=== PATIENT | female | born 1970 | race Caucasian/White ===

== ENCOUNTER 2019-06-10 10:07 | Emergency (ER) | payer OTHER, SELFPAY ==
--- NOTE | 2019-06-10 10:11 | DI.RAD.S_ITS ---
PROCEDURE: XR ANKLE RT MIN 3V INDICATIONS: injury TECHNIQUE: 3 views of the ankle were acquired. COMPARISON: None. FINDINGS: Bones: No fractures or dislocations but there is what appears to be a small accessory ossicle adjacent to the inferior tip of the medial malleolus. Ankle mortise is normally aligned. No suspicious bony lesions. Soft tissues: No tibiotalar joint effusion. Achilles tendon appears normal. Mild soft tissue swelling over the medial aspect of the distal metadiaphyseal junction of the tibia is present seen on one view only. IMPRESSION: No fracture found, no traumatic subluxation seen. Ligamentous injury could be present as cause of the soft tissue swelling noted above. Accessory ossicle is noted. Dictated by: Wil Perez M.D. on 06/10/2019 at 11:51 Approved by: Wil Perez M.D. on 06/10/2019 at 11:53
[2019-06-10 10:58] VITALS: BMI 32.1
[2019-06-10 11:01] VITALS: BP 155/78; PULSE 70; RESP 20; TEMP 36.9; O2SAT 97; BMI 32.1
--- NOTE | 2019-06-10 12:00 | ED.LOWEXIN ---
HPI - Extremity Injury (Lower) <Arnav JaimesLIZET ariasP - Last Filed: 06/10/19 23:15> General Chief Complaint: Extremity Injury, Lower Stated Complaint: smashed foot on platform Time Seen by Provider: 06/10/19 11:23 Source: patient Mode of arrival: other (scooter) Limitations: no limitations History of Present Illness HPI Narrative: This is a 49-year-old female, nonsmoker, presents with her friend with chief complain of right medial ankle pain, bruise and swelling. She reports she was at [employer] [facility] on Monday. She hit right food on a ramp when she is trying to stretch her right leg from having cramps. She reports unable to bear weight or ambulate on affected leg due to pain. She has been using ice, elevated affected leg and used Aaron wrap for last 36 hours. She reports her pain is at 5/10 and took Tylenol last night at 2100. She reports had a history of right foot fracture. Related Data Home Medications Medication Instructions Recorded Confirmed methylphenidate HCl 54 mg PO DAILY 06/10/19 06/10/19 Allergies Allergy/AdvReac Type Severity Reaction Status Date / Time No Known Drug Allergies Allergy Verified 06/10/19 10:12 Review of Systems <Arnav Mendieta [facility] Last Filed: 06/10/19 23:15> Review of Systems General: Denies fever, chills, fatigue, malaise, sweats. HEENT: Denies sinus pain, ear pain, sore throat, difficulty swallowing, dizziness. Respiratory: Denies dyspnea, cough, wheezing, hemoptysis, sputum. Cardiovascular: Denies chest pain, palpitations, orthopnea, edema. Gastrointestinal: Denies nausea, vomiting, abdominal pain, diarrhea, constipation, melena. : Denies dysuria, frequency, incontinence, hematuria, urinary retention. Musculoskeletal: See HPI Skin: Denies rash, skin lesions, or other. Neurologic: Denies weakness, headache, numbness, change in speech, confusion, seizures, incoordination. Psychiatric: No concerning psychosocial issues. 12-point review of systems is negative except for those stated above. Exam <Arnav Jaimeshugo [facility] Last Filed: 06/10/19 23:15> Narrative Exam Narrative: GEN: Alert, oriented x 3, well appearing and nourished, and in no acute distress. Head: Normal cephalic, atraumatic. No scalp or temporal tenderness, palpable mass or rash. EYES: Pupils are equal, round, and reactive to light and accommodation. Extraocular muscles are intact bilaterally. There is no subconjunctival hemorrhage, exudate and sclera non-icteric. ENT: Nose without bleeding, purulent discharge. Mucous membrane moist, no mucosal lesion. Throat without erythema, tonsillar hypertrophy or exudate. Uvula in midline, airway patent. Neck: Trachea in midline. No JVD, non-tender without lymphadenopathy. No masses or thyroid megaly. Supple, non-tender and no meningeal signs. CARDIAC: Normal regular rate and rhythm without murmurs, gallops, or rubs. No chest wall tenderness. No peripheral edema, cyanosis or pallor. Capillary refill is less than 2 seconds. No carotid bruits. RESPIRATORY: Lungs are cleat to auscultate bilaterally. No cough, wheezes, rales, or rhonchi. No stridor, respiratory distress, increase work of breathing, or accessary muscle used. ABD: Abdomen soft, nontender and non-distended. No guarding or rebound tenderness to palpate. Bowel sounds are normal in all 4 quadrants. There is no palpable masses or organomegaly. SKIN: Ecchymosis on R medial ankle. Warm, dry, normal color for patient. BACK: Nontender without deformity or crepitance. No flank tenderness. NEUROLOGICAL: Alert and oriented to place, time and person. Sensation and motor function intact bilaterally. No facial droops, dysphasia. PSYCHIATRIC: Good judgement and reason, without hallucinations, abnormal affect or abnormal behaviors during the examination. Initial Vital Signs Initial Vital Signs: Vital Signs Temperature 98.5 F 06/10/19 11:01 Pulse Rate 70 06/10/19 11:01 Respiratory Rate 20 06/10/19 11:01 Blood Pressure 155/78 H 06/10/19 11:01 Pulse Oximetry 97 06/10/19 11:01 Extrem Right lower extremity: normal capillary refill, hip/thigh Details: normal to inspection and normal ROM; no tenderness and no swelling, knee Details: normal ROM; no tenderness and no swelling and ankle Details: tenderness, swelling, abnormal ROM Details: pain with passive ROM and ecchymosis Left lower extremity: normal to inspection, full ROM and normal capillary refill; no edema <Halie Lemon DO - Last Filed: 06/12/19 18:00> Initial Vital Signs Initial Vital Signs: Vital Signs Temperature 98.5 F 06/10/19 11:01 Pulse Rate 70 06/10/19 11:01 Respiratory Rate 20 06/10/19 11:01 Blood Pressure 155/78 H 06/10/19 11:01 Pulse Oximetry 97 06/10/19 11:01 Procedures <ROSALINE Asencio - Last Filed: 06/10/19 23:15> Orthopedic Splinting/Casting Injury #1: Side: right Lower Extremity Injury Location: ankle Lower Extremity Immobilizer: AirCast Post splinting neuro exam: intact Post splinting vascular exam: intact Placed by: Nursing Additional Comments: The patient has her own scooter type walker (borrowed from a neighbor). Course <ROSALINE Asencio - Last Filed: 06/10/19 23:15> Orders Ordered: ED Orders 06/10/19 10:11 XR ankle RT min 3V Stat Vital Signs - 8 hr 06/10/19 11:01 Temperature 98.5 F Pulse Rate 70 Respiratory Rate 20 Blood Pressure 155/78 H Pulse Oximetry 97 <Halie Lemon DO - Last Filed: 06/12/19 18:00> Orders Ordered: ED Orders 06/10/19 10:11 XR ankle RT min 3V Stat Vital Signs - 8 hr 06/10/19 11:01 Temperature 98.5 F Pulse Rate 70 Respiratory Rate 20 Blood Pressure 155/78 H Pulse Oximetry 97 MDM - Extremity Injury (Lower) <ROSALINE Asencio Last Filed: 06/10/19 23:15> Differential Diagnosis Likely ankle sprain and strain and ankle fracture Medical Records Attestation: I reviewed the patient's medical records. Imaging Data XR-R ankle: Radiologist's impression: [address] [address] XRay Report Signed Patient: Lashay Almodovar#: [id number] : 1970Acct:[id number] Age/Sex: 49 / FDate of Service: 06/10/19 Loc: ED Accession Number: [id number] Procedure: XR ankle RT min 3V Ordering Provider: Halie Lemon D.O. PROCEDURE: XR ANKLE RT MIN 3V INDICATIONS: injury TECHNIQUE: 3 views of the ankle were acquired. COMPARISON: None. FINDINGS: Bones: No fractures or dislocations but there is what appears to be a small accessory ossicle adjacent to the inferior tip of the medial malleolus. Ankle mortise is normally aligned. No suspicious bony lesions. Soft tissues: No tibiotalar joint effusion. Achilles tendon appears normal. Mild soft tissue swelling over the medial aspect of the distal metadiaphyseal junction of the tibia is present seen on one view only. IMPRESSION: No fracture found, no traumatic subluxation seen. Ligamentous injury could be present as cause of the soft tissue swelling noted above. Accessory ossicle is noted. Dictated by: Wil Perez M.D. on 06/10/2019 at 11:51 Approved by: Wil Perez M.D. on 06/10/2019 at 11:53 [facility] Narrative Medical decision making narrative: This is a 49-year-old female presents ED with right ankle pain, swelling, bruise. She sustained an injury on Monday when she was coming down zip line and hit her right food on a ramp while she was trying to stretch her legs from cramps. She reports she was unable to bear weight or ambulate due to pain. Right foot pedal pulse is intact, normal sensation, and she was able to wiggle her toes. She reports increased pain on her right ankle with light touch and passive range of motion of flexion and extension of right foot. She reports had of right foot fracture in the past. Right ankle three view x-rays was obtained and shows no fracture, subluxation, dislocation, tibial tarlar joint effusion. Patient provided with air cast on right ankle. Patient declined crutches and choose to use her neighbors scooter type walker. Return precautions were discussed. The patient was advised to follow with her primary care physician at [facility] in 2-3 days for re-evaluation. She was advised to use RICE therapy or pain. All questions were answered and patient agrees with treatment plan. Discharge Plan Departure Patient Disposition: Home Clinical Impression: Ankle sprain and strain Discharge Date/Time: 06/10/19 12:20 Interventions: ED Discharge Assessment Last Done: 06/10/19 12:19 Instructions: DI for Ankle Sprain Activity Restrictions/Additional Instructions: You have been diagnosed with [ankle sprain and strain. Per xray test, you do not have fractures or dislocations, tibiotarlar joint effusion on your ankle. There was mild soft tissue swelling over the medial aspect of the distal metadiaphyseal junction of the tibia. However, there could be ligamentous injury present. Please use the ankle splint for pain and comfort. You could continue to use a scooter for ambulation aid if you prefer this]. What to do: *Take your medications as directed. Please take [id number] Tylenol and or Motrin as needed for discomfort. Use ice pack for next 12 hours in addition. *Follow up with your primary care provider in 2-3 days, call for an appointment. Let them know you were seen in the ED and that we asked you to be seen in follow up. *Return to ED if you have any new, worsening, or concerning symptoms, such as [severe pain, significant swelling, tingling numbness to toes, weakness to her foot, chest pain, difficulty breathing, any other acute concerns]. Prescriptions: No Action methylphenidate HCl 54 mg tablet extended release 24hr 54 mg PO DAILY RF: 0 Referrals: [facility] [Outside] <Halie Lemon DO - Last Filed: 06/12/19 18:00> Cosign ED Attending Cosignature Attestation: I was immediately available in the department for consultation. This documentation has been reviewed and I agree with assessment and plan. Supervised by Halie Lemon DO
--- NOTE | 2019-06-10 12:06 | ED_ITS ---
HPI - Extremity Injury (Lower) <Arnav JaimesLIZET ariasP - Last Filed: 06/10/19 23:15> General Chief Complaint: Extremity Injury, Lower Stated Complaint: smashed foot on platform Time Seen by Provider: 06/10/19 11:23 Source: patient Mode of arrival: other (scooter) Limitations: no limitations History of Present Illness HPI Narrative: This is a 49-year-old female, nonsmoker, presents with her friend with chief complain of right medial ankle pain, bruise and swelling. She reports she was at [employer] [facility] on Monday. She hit right food on a ramp when she is trying to stretch her right leg from having cramps. She reports unable to bear weight or ambulate on affected leg due to pain. She has been using ice, elevated affected leg and used Aaron wrap for last 36 hours. She reports her pain is at 5/10 and took Tylenol last night at 2100. She reports had a history of right foot fracture. Related Data Home Medications Medication Instructions Recorded Confirmed methylphenidate HCl 54 mg PO DAILY 06/10/19 06/10/19 Allergies Allergy/AdvReac Type Severity Reaction Status Date / Time No Known Drug Allergies Allergy Verified 06/10/19 10:12 Review of Systems <Arnav Mendieta [facility] Last Filed: 06/10/19 23:15> Review of Systems General: Denies fever, chills, fatigue, malaise, sweats. HEENT: Denies sinus pain, ear pain, sore throat, difficulty swallowing, dizziness. Respiratory: Denies dyspnea, cough, wheezing, hemoptysis, sputum. Cardiovascular: Denies chest pain, palpitations, orthopnea, edema. Gastrointestinal: Denies nausea, vomiting, abdominal pain, diarrhea, constipati on, melena. : Denies dysuria, frequency, incontinence, hematuria, urinary retention. Musculoskeletal: See HPI Skin: Denies rash, skin lesions, or other. Neurologic: Denies weakness, headache, numbness, change in speech, confusion, seizures, incoordination. Psychiatric: No concerning psychosocial issues. 12-point review of systems is negative except for those stated above. Exam <Arnav Jaimeshugo [facility] Last Filed: 06/10/19 23:15> Narrative Exam Narrative: GEN: Alert, oriented x 3, well appearing and nourished, and in no acute distress. Head: Normal cephalic, atraumatic. No scalp or temporal tenderness, palpable mass or rash. EYES: Pupils are equal, round, and reactive to light and accommodation. Extraocular muscles are intact bilaterally. There is no subconjunctival hemorrhage, exudate and sclera non-icteric. ENT: Nose without bleeding, purulent discharge. Mucous membrane moist, no mucosal lesion. Throat without erythema, tonsillar hypertrophy or exudate. Uvula in midline, airway patent. Neck: Trachea in midline. No JVD, non-tender without lymphadenopathy. No masses or thyroid megaly. Supple, non-tender and no meningeal signs. CARDIAC: Normal regular rate and rhythm without murmurs, gallops, or rubs. No chest wall tenderness. No peripheral edema, cyanosis or pallor. Capillary refill is less than 2 seconds. No carotid bruits. RESPIRATORY: Lungs are cleat to auscultate bilaterally. No cough, wheezes, rales, or rhonchi. No stridor, respiratory distress, increase work of breathing, or accessary muscle used. ABD: Abdomen soft, nontender and non-distended. No guarding or rebound tenderness to palpate. Bowel sounds are normal in all 4 quadrants. There is no palpable masses or organomegaly. SKIN: Ecchymosis on R medial ankle. Warm, dry, normal color for patient. BACK: Nontender without deformity or crepitance. No flank tenderness. NEUROLOGICAL: Alert and oriented to place, time and person. Sensation and motor function intact bilaterally. No facial droops, dysphasia. PSYCHIATRIC: Good judgement and reason, without hallucinations, abnormal affect or abnormal behaviors during the examination. Initial Vital Signs Initial Vital Signs: Vital Signs Temperature 98.5 F 06/10/19 11:01 Pulse Rate 70 06/10/19 11:01 Respiratory Rate 20 06/10/19 11:01 Blood Pressure 155/78 H 06/10/19 11:01 Pulse Oximetry 97 06/10/19 11:01 Extrem Right lower extremity: normal capillary refill, hip/thigh Details: normal to inspection and normal ROM; no tenderness and no swelling, knee Details: normal ROM; no tenderness and no swelling and ankle Details: tenderness, swelling, abnormal ROM Details: pain with passive ROM and ecchymosis Left lower extremity: normal to inspection, full ROM and normal capillary refill; no edema <Halie Lemon DO - Last Filed: 06/12/19 18:00> Initial Vital Signs Initial Vital Signs: Vital Signs Temperature 98.5 F 06/10/19 11:01 Pulse Rate 70 06/10/19 11:01 Respiratory Rate 20 06/10/19 11:01 Blood Pressure 155/78 H 06/10/19 11:01 Pulse Oximetry 97 06/10/19 11:01 Procedures <ROSALINE Asencio - Last Filed: 06/10/19 23:15> Orthopedic Splinting/Casting Injury #1: Side: right Lower Extremity Injury Location: ankle Lower Extremity Immobilizer: AirCast Post splinting neuro exam: intact Post splinting vascular exam: intact Placed by: Nursing Additional Comments: The patient has her own scooter type walker (borrowed from a neighbor). Course <ROSALINE Asencio - Last Filed: 06/10/19 23:15> Orders Ordered: ED Orders 06/10/19 10:11 XR ankle RT min 3V Stat Vital Signs - 8 hr 06/10/19 11:01 Temperature 98.5 F Pulse Rate 70 Respiratory Rate 20 Blood Pressure 155/78 H Pulse Oximetry 97 <Halie Lemon DO - Last Filed: 06/12/19 18:00> Orders Ordered: ED Orders 06/10/19 10:11 XR ankle RT min 3V Stat Vital Signs - 8 hr 06/10/19 11:01 Temperature 98.5 F Pulse Rate 70 Respiratory Rate 20 Blood Pressure 155/78 H Pulse Oximetry 97 MDM - Extremity Injury (Lower) <ROSALINE Asencio Last Filed: 06/10/19 23:15> Differential Diagnosis Likely ankle sprain and strain and ankle fracture Medical Records Attestation: I reviewed the patient's medical records. Imaging Data XR-R ankle: Radiologist's impression: [address] [address] XRay Report Signed Patient: Lashay Almodovar#: [id number] : 1970Acct:[id number] Age/Sex: 49 / FDate of Service: 06/10/19 Loc: ED Accession Number: [id number] Procedure: XR ankle RT min 3V Ordering Provider: Halie Lemon D.O. PROCEDURE: XR ANKLE RT MIN 3V INDICATIONS: injury TECHNIQUE: 3 views of the ankle were acquired. COMPARISON: None. FINDINGS: Bones: No fractures or dislocations but there is what appears to be a small accessory ossicle adjacent to the inferior tip of the medial malleolus. Ankle mortise is normally aligned. No suspicious bony lesions. Soft tissues: No tibiotalar joint effusion. Achilles tendon appears normal. Mild soft tissue swelling over the medial aspect of the distal metadiaphyseal junction of the tibia is present seen on one view only. IMPRESSION: No fracture found, no traumatic subluxation seen. Ligamentous injury could be present as cause of the soft tissue swelling noted above. Accessory ossicle is noted. Dictated by: Wil Perez M.D. on 06/10/2019 at 11:51 Approved by: Wil Perez M.D. on 06/10/2019 at 11:53 [facility] Narrative Medical decision making narrative: This is a 49-year-old female presents ED with right ankle pain, swelling, bruise. She sustained an injury on Monday when she was coming down zip line and hit her right food on a ramp while she was trying to stretch her legs from cramps. She reports she was unable to bear weight or ambulate due to pain. Right foot pedal pulse is intact, normal sensation, and she was able to wiggle her toes. She reports increased pain on her right ankle with light touch and passive range of motion of flexion and ex tension of right foot. She reports had of right foot fracture in the past. Right ankle three view x-rays was obtained and shows no fracture, subluxation, dislocation, tibial tarlar joint effusion. Patient provided with air cast on right ankle. Patient declined crutches and choose to use her neighbors scooter type walker. Return precautions were discussed. The patient was advised to follow with her primary care physician at [facility] in 2-3 days for re-evaluation. She was advised to use RICE therapy or pain. All questions were answered and patient agrees with treatment plan. Discharge Plan Departure Patient Disposition: Home Clinical Impression: Ankle sprain and strain Discharge Date/Time: 06/10/19 12:20 Interventions: ED Discharge Assessment Last Done: 06/10/19 12:19 Instructions: DI for Ankle Sprain Activity Restrictions/Additional Instructions: You have been diagnosed with [ankle sprain and strain. Per xray test, you do not have fractures or dislocations, tibiotarlar joint effusion on your ankle. There was mild soft tissue swelling over the medial aspect of the distal metadiaphyseal junction of the tibia. However, there could be ligamentous injury present. Please use the ankle splint for pain and comfort. You could continue to use a scooter for ambulation aid if you prefer this]. What to do: *Take your medications as directed. Please take [id number] Tylenol and or Motrin as needed for discomfort. Use ice pack for next 12 hours in addition. *Follow up with your primary care provider in 2-3 days, call for an appointment. Let them know you were seen in the ED and that we asked you to be seen in follow up. *Return to ED if you have any new, worsening, or concerning symptoms, such as [severe pain, significant swelling, tingling numbness to toes, weakness to her foot, chest pain, difficulty breathing, any other acute concerns]. Prescriptions: No Action methylphenidate HCl 54 mg tablet extended release 24hr 54 mg PO DAILY RF: 0 Referrals: [facility] [Outside] <Halie Lemon DO - Last Filed: 06/12/19 18:00> Cosign ED Attending Cosignature Attestation: I was immediately available in the department for consultation. This documentation has been reviewed and I agree with assessment and plan. Supervised by Halie Lemon DO
--- NOTE | 2019-06-10 12:20 | PC.NURSE ---
prefabricated ankle stirrup support applied per request
== END 2019-06-10 12:20 | disposition home or self-care (01) ==
PROVIDERS: Emergency Provider Nurse Practitioner Family
DX: S93.401A Sprain of unspecified ligament of right ankle, initial encounter (principal); W22.8XXA Striking against or struck by other objects, initial encounter; Y93.39 Activity, other involving climbing, rappelling and jumping off
CPT/HCPCS: 73610; 99282; 99283

== ENCOUNTER 2022-03-07 11:09 | Emergency (ER) | payer OTHER, SELFPAY ==
[2022-03-07] VITALS (9 sets, daily range): BP systolic 138–163; BP diastolic 76–94; PULSE 66–86; RESP 18; TEMP 36.3; O2SAT 94–98; BMI 29.2
[2022-03-07 12:16] LABS: Add Manual Diff / Slide Review NO; Basophils Absolute Auto 100 /uL (0-100); Basophils Percent Auto 0.5 % (0-2); Eosinophils Absolute Auto 100 /uL (0-450); Eosinophils Percent Auto 0.9 % (2-4); Hematocrit 45.9 % (36-46); Hemoglobin 16.2 g/dL (12.0-16.0); Lymphocytes Absolute Auto 2800 /uL (1100-4500); Lymphocytes Percent Auto 29.9 % (25-40); Mean Corpuscular HGB Conc 35.2 % (30-36); Mean Corpuscular Hemoglobin 31.2 PG (26-34); Mean Corpuscular Volume 88.7 fL (80-100); Monocytes Absolute Auto 1100 /uL (0-900); Monocytes Percent Auto 11.2 % (3-14); Neutrophils Absolute Auto 5400 /uL (1500-7000); Neutrophils Percent Auto 57.5 % (50-75); Platelet Count 239 X10^3/uL (150-400); Red Blood Cell Count 5.18 X10^6/uL (4.0-5.2); Red Cell Distribution Width 12.8 % (11.6-14.8); White Blood Cell Count 9.4 X10^3/uL (4.5-11.0)
[2022-03-07 12:24] LABS: Alanine Aminotransferase 113 IU/L (<35); Albumin Globulin Ratio 1.4 (1.0-2.8); Alkaline Phosphatase 102 U/L (38-126); Aspartate Aminotransferase 95 IU/L (14-36); BUN Creatinine Ratio 21.9 (6-22); Bilirubin Total 0.8 mg/dL (0.2-1.3); Blood Urea Nitrogen 16 mg/dL (7-17); Calcium 9.9 mg/dL (8.4-10.2); Carbon Dioxide 25 mmol/L (22-32); Chloride 102 mmol/L (98-107); Estimated Glomerular Filt Rate > 60 mL/min (>60); Globulin 3.7 g/dL (1.7-4.1); Glucose 156 mg/dL (70-100); HEMOLYSIS < 15 (0-50); Lipase 131 U/L (23-300); Potassium 3.3 mmol/L (3.4-5.1); Sodium 139 mmol/L (137-145); Total Protein 8.7 g/dL (6.3-8.2)
[2022-03-07] MEDS: SODIUM CHLORIDE 0.9% 1,000 ML 1000 ML IV (12:53)
[2022-03-07 14:10] LABS: Appearance Urine UA CLEAR; Color Urine UA YELLOW; Glucose Urine UA TRACE g/dL (Negative); Ketones Urine UA TRACE (NEGATIVE); Leukocyte Esterase Urine UA TRACE (NEGATIVE); Nitrite Urine UA NEGATIVE (Negative); Occult Blood Urine UA NEGATIVE (Negative); Protein Urine UA 1+ (Negative); Specific Gravity Urine UA 1.025 (1.000-1.035)
[2022-03-07 14:11] LABS: pH Urine UA 5.5 (4.5-8.0)
[2022-03-07 14:14] LABS: Bacteria Urine Few (2-10); Calcium Oxalate Crystals Urine Few; Mucus Urine 1+ (Negative); RBC Urine 0-1/HPF (0-5/HPF); Squamous Epithelial Cell Urine 1-5 /HPF (0-5/HPF); WBC Urine 1-5/HPF (0-5/HPF)
--- NOTE | 2022-03-07 14:15 | ED_ITS ---
HPI - Nausea/Vomiting/Diarrhea <Nava Beth PA-C - Last Filed: 03/07/22 16:36> General Chief complaint: Nausea/Vomiting/Diarrhea Stated complaint: N/V/D since monday today, no fever Time Seen by Provider: 03/07/22 13:39 Source: patient Mode of arrival: Ambulatory History of Present Illness HPI Narrative: 51-year-old female with no reported past medical history presents to the ED with 4 days of nausea, vomiting, diarrhea. Patient states she had a fever of T-max 101? F on the 1st 2 days, has been fever free for the last 2 days. Patient denies rhinorrhea, cough, sore throat, chest pain, shortness of breath, dysuria, flank pain, hematochezia, melena, hematemesis. Patient states she has been unable to successfully keep down fluids/solids. States she had a mild headache that has now resolved. Patient denies eating any suspicious foods. Patient states no one else at home is sick. Related Data Home Medications Medication Instructions Recorded Confirmed methylphenidate HCl 54 mg 54 mg PO DAILY 06/10/19 06/10/19 tablet,extended release 24 hr Previous Rx's Medication Instructions Recorded cefpodoxime 200 mg tablet 400 mg PO Q12H 10 Days #40 tab 03/07/22 ondansetron 4 mg disintegrating 4 mg PO Q8H PRN 3 Days #10 tab 03/07/22 tablet Allergies Allergy/AdvReac Type Severity Reaction Status Date / Time No Known Drug Allergies Allergy Verified 06/10/19 10:12 Review of Systems <Nava Beth PA-C - Last Filed: 03/07/22 16:36> Review of Systems ROS Unobtainable: All systems reviewed & are unremarkable except as noted in HPI and below Constitutional Constitutional: Denies chills, Denies fatigue, Denies fever(s), Denies frequent falls, Denies lethargy and Denies weakness Comments: Headache Eyes Eyes: Denies change in vision, Denies eye discharge, Denies irritation and Denies loss of vision ENT Ears, Nose, Mouth, and Throat: Denies change in voice, Denies dizziness, Denies neck pain, Denies sore throat and Denies throat swelling Cardiovascular Cardiovascular: Denies chest pain, Denies irregular heart rhythm, Denies lightheadedness, Denies palpitations, Denies dyspnea, Denies dyspnea on exertion and Denies orthopnea Respiratory Respiratory: Denies cough, Denies dyspnea, Denies dyspnea on exertion and Denies wheezing Gastrointestinal Gastrointestinal: Denies abdominal pain, Denies change in bowel habits, Reports diarrhea, Reports nausea and Reports vomiting Genitourinary Genitourinary: Denies hematuria, Denies flank pain, Denies urinary incontinence and Denies urinary urgency Musculoskeletal Musculoskeletal: Denies back pain, Denies muscle weakness, Denies neck pain, Denies numbness and Denies tingling Integumentary/Breasts Skin/Breast: Denies pruritus, Denies erythema, Denies rash and Denies wounds Neurologic Neurologic: Denies behavioral changes, Denies confusion, Denies dizziness, Denie s frequent falls, Denies loss of vision, Denies numbness, Denies tingling and Denies weakness Psychiatric Psychiatric: Denies anxiety, Denies behavioral changes, Denies confusion, Denies depression, Denies homicidal ideation and Denies suicidal ideation Endocrine Endocrine: Denies fatigue, Denies flushing and Denies palpitations Hematologic/Lymphatic Hematologic/Lymphatic: Denies easy bruising Allergic/Immunologic Allergic/Immunologic: Denies urticaria, Denies throat swelling and Denies wheezing Exam <Nava Beth PA-C - Last Filed: 03/07/22 16:36> Initial Vital Signs Initial Vital Signs: Vital Signs Temperature 97.4 F L 03/07/22 11:34 Pulse Rate 86 03/07/22 11:34 Respiratory Rate 18 03/07/22 11:34 Blood Pressure 163/90 H 03/07/22 11:34 Pulse Oximetry 97 03/07/22 11:34 Const General: cooperative, healthy appearing and comfortable [facility] Head: normal to inspection Ears: hearing grossly normal bilaterally Eyes General: Yes appearance normal, both eyes and all related structures Resp Effort & Inspection: normal respiratory effort Auscultation: clear to auscultation bilaterally Cardio Rate: regular rate Rhythm: regular rhythm GI Other: Abdomen is soft, nondistended, nontender to palpation. No CVA tenderness General: No CVA tenderness Back/Spine/Pelvis Back: normal to inspection Skin General: no rashes or lesions noted Neuro General: patient alert, patient awake and patient oriented x3 Psych Appearance: grossly normal Mental Status: mental status grossly normal <Chula Lopez DO - Last Filed: 03/09/22 07:26> Initial Vital Signs Initial Vital Signs: Vital Signs Temperature 97.4 F L 03/07/22 11:34 Pulse Rate 86 03/07/22 11:34 Respiratory Rate 18 03/07/22 11:34 Blood Pressure 163/90 H 03/07/22 11:34 Pulse Oximetry 97 03/07/22 11:34 Course <Nava Beth PA-C - Last Filed: 03/07/22 16:36> Orders Ordered: Discontinued Medications Sodium Chloride (Normal Saline 0.9%) 1,000 mls @ 1,000 mls/hr IV BOLUS ONE Stop: 03/07/22 13:51 Last Infusion: 03/07/22 14:13 Dose: 0 mls/hr Documented by: Admin: 03/07/22 12:53 Dose: 1,000 mls/hr Documented by: BENITA Ondansetron HCl (Ondansetron 4 Mg/2 Ml Inj) 4 mg IV NOW ONE Stop: 03/07/22 14:12 Last Admin: 03/07/22 14:17 Dose: 4 mg Documented by: BENITA Vital Signs Vital signs: Vital Signs - 8 hr 03/07/22 11:34 03/07/22 12:42 03/07/22 12:43 Temperature 97.4 F L Pulse Rate 86 75 77 Respiratory Rate 18 Blood Pressure 163/90 H 146/94 H Pulse Oximetry 97 96 95 03/07/22 13:00 03/07/22 13:30 03/07/22 14:00 Temperature Pulse Rate 75 75 70 Respiratory Rate Blood Pressure 138/90 138/89 140/81 Pulse Oximetry 95 96 94 03/07/22 14:30 03/07/22 14:53 03/07/22 16:15 Temperature Pulse Rate 66 71 68 Respiratory Rate 18 Blood Pressure 138/76 147/94 H Pulse Oximetry 96 97 98 <Chula Lopez DO - Last Filed: 03/09/22 07:26> Orders Ordered: Discontinued Medications Sodium Chloride (Normal Saline 0.9%) 1,000 mls @ 1,000 mls/hr IV BOLUS ONE Stop: 03/07/22 13:51 Last Infusion: 03/07/22 14:13 Dose: 0 mls/hr Documented by: Admin: 03/07/22 12:53 Dose: 1,000 mls/hr Documented by: BENITA Ondansetron HCl (Ondansetron 4 Mg/2 Ml Inj) 4 mg IV NOW ONE Stop: 03/07/22 14:12 Last Admin: 03/07/22 14:17 Dose: 4 mg Documented by: BENITA Vital Signs Vital signs: Vital Signs - 8 hr 03/07/22 11:34 03/07/22 12:42 03/07/22 12:43 Temperature 97.4 F L Pulse Rate 86 75 77 Respiratory Rate 18 Blood Pressure 163/90 H 146/94 H Pulse Oximetry 97 96 95 03/07/22 13:00 03/07/22 13:30 03/07/22 14:00 Temperature Pulse Rate 75 75 70 Respiratory Rate Blood Pressure 138/90 138/89 140/81 Pulse Oximetry 95 96 94 03/07/22 14:30 03/07/22 14:53 03/07/22 16:15 Temperature Pulse Rate 66 71 68 Respiratory Rate 18 Blood Pressure 138/76 147/94 H Pulse Oximetry 96 97 98 MDM - Nausea/Vomiting/Diarrhea <Nava Beth PA-C - Last Filed: 03/07/22 16:36> Medical Records Attestation: I reviewed the patient's medical records. Lab Data Attestation: I reviewed the patient's lab results. Lab results narrative: Labs within normal limits. UA positive for leukocyte esterase, bacteria. no WBC, no nitrate Result diagrams: 03/07/22 11:45 03/07/22 11:45 Labs: Lab Results 03/07/22 03/07/22 03/07/22 Range/Units 11:45 11:45 12:50 WBC 9.4 (4.5-11.0) X10^3/uL RBC 5.18 (4.0-5.2) X10^6/uL Hgb 16.2 H (12.0-16.0) g/dL Hct 45.9 (36-46) % MCV 88.7 (80-100) fL MCH 31.2 (26-34) PG MCHC 35.2 (30-36) % RDW 12.8 (11.6-14.8) % Plt Count 239 (150-400) X10^3/uL Neut % (Auto) 57.5 (50-75) % Lymph % (Auto) 29.9 (25-40) % [place] % (Auto) 11.2 (3-14) % Eos % (Auto) 0.9 L (2-4) % Baso % (Auto) 0.5 (0-2) % Neut # (Auto) 5400 (8486-9966) /uL Lymph # (Auto) 2800 (6118-8242) /uL [place] # (Auto) 1100 H (0-900) /uL Eos # (Auto) 100 (0-450) /uL Baso # (Auto) 100 (0-100) /uL Sodium 139 (137-145) mmol/L Potassium 3.3 L (3.4-5.1) mmol/L Chloride 102 (98-107) mmol/L Carbon Dioxide 25 (22-32) mmol/L BUN 16 (7-17) mg/dL Creatinine 0.73 (0.52-1.04) mg/dL Estimated GFR > 60 (>60) mL/min BUN/Creatinine Ratio 21.9 (6-22) Glucose 156 H (70-100) mg/dL Calcium 9.9 (8.4-10.2) mg/dL Total Bilirubin 0.8 (0.2-1.3) mg/dL AST 95 H (14-36) IU/L ALT 113 H (<35) IU/L Alkaline Phosphatase 102 (38-126) U/L Total Protein 8.7 H (6.3-8.2) g/dL Albumin 5.0 (3.5-5.0) g/dL Globulin 3.7 (1.7-4.1) g/dL Albumin/Globulin Ratio 1.4 (1.0-2.8) Lipase 131 (23-300) U/L Urine Color Yellow Urine Appearance Clear Urine pH 5.5 (4.5-8.0) Ur Specific [place] 1.025 (1.000-1.035) Urine Protein 1+ H (Negative) Urine Glucose (UA) Trace H (Negative) g/dL Urine Ketones Trace H (NEGATIVE) Urine Occult Blood Negative (Negative) Urine Nitrate Negative (Negative) Urine Bilirubin 1+ H (NEGATIVE) Ur Bilirubin Confirm Negative (Negative) Urine Urobilinogen 1.0 (0.2) E.U./dL Ur Leukocyte Esterase Trace H (NEGATIVE) Urine RBC 0-1/hpf (0-5/HPF) Urine WBC 1-5/hpf (0-5/HPF) Ur Squamous Epith Cells 1-5 /hpf (0-5/HPF) Calcium Oxalate Crystal Few H Urine Bacteria Few (2-10) H (None) Urine Mucus 1+ H (Negative) Ur Culture Indicated? Cult not indicated SARS-CoV-2 (PCR) (Negative) 03/07/22 Range/Units 14:19 WBC (4.5-11.0) X10^3/uL RBC (4.0-5.2) X10^6/uL Hgb (12.0-16.0) g/dL Hct (36-46) % MCV (80-100) fL MCH (26-34) PG MCHC (30-36) % RDW (11.6-14.8) % Plt Count (150-400) X10^3/uL Neut % (Auto) (50-75) % Lymph % (Auto) (25-40) % [place] % (Auto) (3-14) % Eos % (Auto) (2-4) % Baso % (Auto) (0-2) % Neut # (Auto) (0907-0048) /uL Lymph # (Auto) (4651-3148) /uL [place] # (Auto) (0-900) /uL Eos # (Auto) (0-450) /uL Baso # (Auto) (0-100) /uL Sodium (137-145) mmol/L Potassium (3.4-5.1) mmol/L Chloride (98-107) mmol/L Carbon Dioxide (22-32) mmol/L BUN (7-17) mg/dL Creatinine (0.52-1.04) mg/dL Estimated GFR (>60) mL/min BUN/Creatinine Ratio (6-22) Glucose (70-100) mg/dL Calcium (8.4-10.2) mg/dL Total Bilirubin (0.2-1.3) mg/dL AST (14-36) IU/L ALT (<35) IU/L Alkaline Phosphatase (38-126) U/L Total Protein (6.3-8.2) g/dL Albumin (3.5-5.0) g/dL Globulin (1.7-4.1) g/dL Albumin/Globulin Ratio (1.0-2.8) Lipase (23-300) U/L Urine Color Urine Appearance Urine pH (4.5-8.0) Ur Specific [place] (1.000-1.035) Urine Protein (Negative) Urine Glucose (UA) (Negative) g/dL Urine Ketones (NEGATIVE) Urine Occult Blood (Negative) Urine Nitrate (Negative) Urine Bilirubin (NEGATIVE) Ur Bilirubin Confirm (Negative) Urine Urobilinogen (0.2) E.U./dL Ur Leukocyte Esterase (NEGATIVE) Urine RBC (0-5/HPF) Urine WBC (0-5/HPF) Ur Squamous Epith Cells (0-5/HPF) Calcium Oxalate Crystal Urine Bacteria (None) Urine Mucus (Negative) Ur Culture Indicated? SARS-CoV-2 (PCR) Negative (Negative) Point of Care Testing Test Results Negative MDM Narrative Medical decision making narrative: 51-year-old female with no reported past medical history presents to the ED with 4 days of nausea, vomiting, diarrhea. Physical exam is reassuring for no abdominal tenderness, distension. No imaging indicated at this point. Symptoms likely due to gastroenteritis. Will check for dehydration, UTI. Will obtain labs, UA. Will give IV fluids, Zofran for symptoms. Will reassess. Labs within normal limits. Patient's symptoms improved with Zofran. Patient was able to keep down water and pudding. UA was positive for leukocyte esterase, bacteria but negative for wbc's or nitrates. Considered the possibility of the pyelonephritis. Discussed with patient. Jointly decided that patient will take home a prescription for some antibiotics, will start in a couple of days if her symptoms still persist. ED return precautions discussed with patient. Patient verbalized understanding. <Chula Lopez, - Last Filed: 03/09/22 07:26> Lab Data Labs: Lab Results 03/07/22 03/07/22 03/07/22 Range/Units 11:45 11:45 12:50 WBC 9.4 (4.5-11.0) X10^3/uL RBC 5.18 (4.0-5.2) X10^6/uL Hgb 16.2 H (12.0-16.0) g/dL Hct 45.9 (36-46) % MCV 88.7 (80-100) fL MCH 31.2 (26-34) PG MCHC 35.2 (30-36) % RDW 12.8 (11.6-14.8) % Plt Count 239 (150-400) X10^3/uL Neut % (Auto) 57.5 (50-75) % Lymph % (Auto) 29.9 (25-40) % [place] % (Auto) 11.2 (3-14) % Eos % (Auto) 0.9 L (2-4) % Baso % (Auto) 0.5 (0-2) % Neut # (Auto) 5400 (9952-4191) /uL Lymph # (Auto) 2800 (5297-1238) /uL [place] # (Auto) 1100 H (0-900) /uL Eos # (Auto) 100 (0-450) /uL Baso # (Auto) 100 (0-100) /uL Sodium 139 (137-145) mmol/L Potassium 3.3 L (3.4-5.1) mmol/L Chloride 102 (98-107) mmol/L Carbon Dioxide 25 (22-32) mmol/L BUN 16 (7-17) mg/dL Creatinine 0.73 (0.52-1.04) mg/dL Estimated GFR > 60 (>60) mL/min BUN/Creatinine Ratio 21.9 (6-22) Glucose 156 H (70-100) mg/dL Calcium 9.9 (8.4-10.2) mg/dL Total Bilirubin 0.8 (0.2-1.3) mg/dL AST 95 H (14-36) IU/L ALT 113 H (<35) IU/L Alkaline Phosphatase 102 (38-126) U/L Total Protein 8.7 H (6.3-8.2) g/dL Albumin 5.0 (3.5-5.0) g/dL Globulin 3.7 (1.7-4.1) g/dL Albumin/Globulin Ratio 1.4 (1.0-2.8) Lipase 131 (23-300) U/L Urine Color Yellow Urine Appearance Clear Urine pH 5.5 (4.5-8.0) Ur Specific [place] 1.025 (1.000-1.035) Urine Protein 1+ H (Negative) Urine Glucose (UA) Trace H (Negative) g/dL Urine Ketones Trace H (NEGATIVE) Urine Occult Blood Negative (Negative) Urine Nitrate Negative (Negative) Urine Bilirubin 1+ H (NEGATIVE) Ur Bilirubin Confirm Negative (Negative) Urine Urobilinogen 1.0 (0.2) E.U./dL Ur Leukocyte Esterase Trace H (NEGATIVE) Urine RBC 0-1/hpf (0-5/HPF) Urine WBC 1-5/hpf (0-5/HPF) Ur Squamous Epith Cells 1-5 /hpf (0-5/HPF) Calcium Oxalate Crystal Few H Urine Bacteria Few (2-10) H (None) Urine Mucus 1+ H (Negative) Ur Culture Indicated? Cult not indicated SARS-CoV-2 (PCR) (Negative) 03/07/22 Range/Units 14:19 WBC (4.5-11.0) X10^3/uL RBC (4.0-5.2) X10^6/uL Hgb (12.0-16.0) g/dL Hct (36-46) % MCV (80-100) fL MCH (26-34) PG MCHC (30-36) % RDW (11.6-14.8) % Plt Count (150-400) X10^3/uL Neut % (Auto) (50-75) % Lymph % (Auto) (25-40) % [place] % (Auto) (3-14) % Eos % (Auto) (2-4) % Baso % (Auto) (0-2) % Neut # (Auto) (9542-2734) /uL Lymph # (Auto) (1949-3311) /uL [place] # (Auto) (0-900) /uL Eos # (Auto) (0-450) /uL Baso # (Auto) (0-100) /uL Sodium (137-145) mmol/L Potassium (3.4-5.1) mmol/L Chloride (98-107) mmol/L Carbon Dioxide (22-32) mmol/L BUN (7-17) mg/dL Creatinine (0.52-1.04) mg/dL Estimated GFR (>60) mL/min BUN/Creatinine Ratio (6-22) Glucose (70-100) mg/dL Calcium (8.4-10.2) mg/dL Total Bilirubin (0.2-1.3) mg/dL AST (14-36) IU/L ALT (<35) IU/L Alkaline Phosphatase (38-126) U/L Total Protein (6.3-8.2) g/dL Albumin (3.5-5.0) g/dL Globulin (1.7-4.1) g/dL Albumin/Globulin Ratio (1.0-2.8) Lipase (23-300) U/L Urine Color Urine Appearance Urine pH (4.5-8.0) Ur Specific [place] (1.000-1.035) Urine Protein (Negative) Urine Glucose (UA) (Negative) g/dL Urine Ketones (NEGATIVE) Urine Occult Blood (Negative) Urine Nitrate (Negative) Urine Bilirubin (NEGATIVE) Ur Bilirubin Confirm (Negative) Urine Urobilinogen (0.2) E.U./dL Ur Leukocyte Esterase (NEGATIVE) Urine RBC (0-5/HPF) Urine WBC (0-5/HPF) Ur Squamous Epith Cells (0-5/HPF) Calcium Oxalate Crystal Urine Bacteria (None) Urine Mucus (Negative) Ur Culture Indicated? SARS-CoV-2 (PCR) Negative (Negative) Point of Care Testing Test Results Negative Discharge Plan Departure Patient Disposition: Home Clinical Impression: Nausea, Vomiting, and Diarrhea Instructions: DI for Dehydration -- Adult, DI for Viral Gastroenteritis -- Adult, DI for Nausea -- Adult Activity Restrictions/Additional Instructions: You were evaluated in the ED today for nausea, vomiting, diarrhea. Your labs were normal. Your urinalysis showed a possible urinary tract infection. You may start taking the antibiotics if you experience any urinary symptoms such as burning when urinating, frequent urination, urgency to urinate. You may take Zofran for nausea. Please continue to stay hydrated. You may follow the BRAT diet, which includes bread, rice, apples, toast for the diarrhea. To the ED if you are unable to keep down fluids, you experience fever, chills, flank pain. Prescriptions: New ondansetron 4 mg tablet,disintegrating 4 mg PO Q8H PRN (Reason: nausea and vomiting) 3 Days Qty: 10 0RF cefpodoxime 200 mg tablet 400 mg PO Q12H 10 Days Qty: 40 0RF Rx Instructions: must administer with a meal/food No Action methylphenidate HCl 54 mg tablet extended release 24hr 54 mg PO DAILY 0RF Referrals: Sheela Woodall MD [Primary Care Provider] - <Chula Botnick, DO - Last Filed: 03/09/22 07:26> Cosign ED Attending Cosda[place] Attestation: I was immediately available in the department for consultation. Documentation romo s been reviewed. I agree with assessment and plan.
[2022-03-07] MEDS: ONDANSETRON 4 MG/2 ML INJ IV (14:17)
[2022-03-07 14:18] LABS: Bilirubin Urine UA 1+ (NEGATIVE); Culture Indicated Urine Cult Not Indicated; Ictotest Urine Negative (Negative)
[2022-03-07 14:43] LABS: COVID19 -Nasal RAPID Negative (Negative)
== END 2022-03-07 16:19 | disposition home or self-care (01) ==
PROVIDERS: Emergency Medicine; Emergency Provider Student in an Organized Health Care Education/Training Program; PCP Student in an Organized Health Care Education/Training Program
DX: R11.2 Nausea with vomiting, unspecified (principal); R19.7 Diarrhea, unspecified; Z20.822 Contact with and (suspected) exposure to COVID-19
CPT/HCPCS: 36415; 80053; 81001; 81025; 83690; 85025; 87635; 93005; 93010; 96361; 96374; 99284; C9803; J2405

== ENCOUNTER 2022-08-19 11:50 | Emergency (ER) | payer OTHER, SELFPAY ==
[2022-08-19 11:52] VITALS: BP 181/91; PULSE 89; RESP 15; TEMP 36.6; O2SAT 96; BMI 32.1
--- NOTE | 2022-08-19 12:01 | DI.RAD.S_ITS ---
PROCEDURE: XR SHOULDER RT MIN 2V INDICATIONS: fall TECHNIQUE: 3 views of the shoulder were acquired. COMPARISON: None. FINDINGS: Bones: No acute fracture or dislocation. No suspicious osseous lesion. Soft tissues: No suspicious soft tissue calcifications. IMPRESSION: No acute radiographic abnormality. If there is high concern for occult injury, consider repeat radiography or cross-sectional imaging. Dictated by: Julio Olvera M.D. on 08/19/2022 at 12:30 Approved by: Julio Olvera M.D. on 08/19/2022 at 12:31
--- NOTE | 2022-08-19 12:24 | ED_ITS ---
HPI - General Adult General Chief complaint: Extremity Injury, Upper Stated complaint: Right shoulder injury after fall Time Seen by Provider: 08/19/22 12:03 Source: patient Mode of arrival: Ambulatory Limitations: no limitations History of Present Illness HPI narrative: 52-year-old female who yesterday morning tripped while she was walking. In order to protect from hitting her face on the side of the how she put her arms out. Since that time she has had pain in her right shoulder. She had a friend give her a sling which she is been wearing. She is also been trying Tylenol and ibuprofen without any improvement. She reports no elbow no wrist pain. No prior injuries Related Data Home Medications Medication Instructions Recorded Confirmed methylphenidate HCl 54 mg 54 mg PO DAILY 06/10/19 06/10/19 tablet,extended release 24 hr Previous Rx's Medication Instructions Recorded hydrocodone 5 mg-acetaminophen 325 1 tab PO Q6H PRN pain #10 tabs 08/19/22 mg tablet Allergies Allergy/AdvReac Type Severity Reaction Status Date / Time No Known Drug Allergies Allergy Verified 08/19/22 12:01 Review of Systems Constitutional Constitutional: Reports system reviewed and no additional complaints, except as documented Musculoskeletal Musculoskeletal: Reports system reviewed and no additional complaints, except as documented Integumentary/Breasts Skin/Breast: Reports system reviewed and no additional complaints, except as documented Neurologic Neurologic: Reports system reviewed and no additional complaints, except as documented Patient History Social History Smoking Status: Unknown if ever smoked Smoking Status: Unknown if ever smoked alcohol intake frequency: holidays/special occasions only Substance Use Type: does not use Exam Initial Vital Signs Initial Vital Signs: Vital Signs Temperature 97.8 F 08/19/22 11:52 Pulse Rate 89 08/19/22 11:52 Respiratory Rate 15 08/19/22 11:52 Blood Pressure 181/91 H 08/19/22 11:52 Pulse Oximetry 96 08/19/22 11:52 Oxygen Delivery Method 08/19/22 11:52 Const General: cooperative and comfortable Cardio Pulses: radial pulses present on the right Skin General: no rashes or lesions noted Neuro Sensory Exam: no sensory deficits noted Extrem Other: Her right wrist and right elbow unremarkable. She is tenderness over the biceps tendon on the right. Tenderness over the AC joint. No tenderness over the scapula. No tenderness over the collarbone. Course Orders Ordered: ED Orders 08/19/22 12:01 XR shoulder RT min 2V Stat Discontinued Medications Hydrocodone Bitart/Acetaminophen (Hydrocodone/Acet 5/325 Tablet) 1 tab PO NOW ONE Stop: 08/19/22 12:24 Last Admin: 08/19/22 12:33 Dose: 1 tab Vital Signs Vital signs: Vital Signs - 8 hr 08/19/22 11:52 Temperature 97.8 F Pulse Rate 89 Respiratory Rate 15 Blood Pressure 181/91 H Pulse Oximetry 96 Oxygen Delivery Method Room Air Medical Decision Making Imaging Data Extremity x-ray #1: Radiologist's Impression: [address] [address] XRay Report Signed Patient: Lashay Almodovar MR#: [id number] : 1970 Acct:[id number] Age/Sex: 52 / F Date of Service: 08/19/22 Loc: ED Accession Number: [id number] ?? Procedure: XR shoulder RT min 2V Ordering Provider: Rusty Harley D.O. PROCEDURE:? XR SHOULDER RT MIN 2V ? INDICATIONS:? fall ? TECHNIQUE:? 3 views of the shoulder were acquired.? ? COMPARISON:? None. ? FINDINGS:? ? Bones:? No acute fracture or dislocation.? No suspicious osseous lesion. ? Soft tissues:? No suspicious soft tissue calcifications.? ? IMPRESSION:? No acute radiographic abnormality.? If there is high concern for occult injury, consider repeat radiography or cross-sectional imaging. ? ? Dictated by: Julio Olvera M.D. on 08/19/2022 at 12:30 ? ? Approved by: Julio Olvera M.D. on 08/19/2022 at 12:31?? MDM Narrative Medical decision making narrative: Neurovascularly intact. X-ray shows no signs of fracture was difficult to get a appropriate exam given the fact that she is tender with just about any area of palpation. I did discuss this with her. The sling was for her comfort. She was given care instructions and return precautions. She expressed understanding and agreement. Discharge Plan Departure Patient Disposition: Home Clinical Impression: Injury of shoulder, right Instructions: DI for Shoulder Sprain Activity Restrictions/Additional Instructions: The x-ray does not show any signs of a fracture or dislocation. The sling is for your comfort however like we discussed I recommend that you try to stay out of the sling as much as possible. Use the medications as directed. Contact your primary doctor for follow-up. Prescriptions: New hydrocodone-acetaminophen 5-325 mg tablet 1 tab PO Q6H PRN (Reason: pain) Qty: 10 0RF No Action methylphenidate HCl 54 mg tablet extended release 24hr 54 mg PO DAILY Referrals: Sheela Woodall MD [Primary Care Provider] -
[2022-08-19] MEDS: HYDROCODONE/ACET 5/325 TABLET 1 TAB PO (12:33)
[2022-08-19 12:57] VITALS: BP 173/102; PULSE 70; RESP 18; O2SAT 99
--- NOTE | 2022-08-19 12:57 | PC.NURSE ---
Pt reports the sling she has with her is borrowed from a friend, new sling provided.
== END 2022-08-19 13:03 | disposition home or self-care (01) ==
PROVIDERS: Emergency Provider Emergency Medicine; PCP Student in an Organized Health Care Education/Training Program
DX: S49.91XA Unspecified injury of right shoulder and upper arm, initial encounter (principal); W01.198A Fall on same level from slipping, tripping and stumbling with subsequent striking against other object, initial encounter; Y93.01 Activity, walking, marching and hiking
CPT/HCPCS: 73030; 99283; 99284